=== PATIENT | female | born 1985 | race Caucasian/White ===

== ENCOUNTER 2016-08-26 01:33 | Inpatient (IN) | payer OTHER ==
[~2016-08-26] VITALS: Ht 162.6 cm; Wt 101.6 kg
[~2016-08-26 01:33] MED LIST: PREN-20 PO
[2016-08-26] MEDS ORDERED: PREN-12 PO (07:53)
[2016-08-26] MEDS ORDERED: Lactated Ringer's 1,000 ML IV PRN (08:19)
[2016-08-26] MEDS ORDERED: Lactated Ringer's 1,000 ML IV SCH (08:19)
[2016-08-26] MEDS ORDERED: Methylergonovine 0.2 mg/mL Inj IM PRN ×2 (08:20→16:25)
[2016-08-26] MEDS ORDERED: Carboprost 250 mCg/mL Inj IM PRN ×2 (08:20→16:25)
[2016-08-26] MEDS ORDERED: Oxytocin 10 Unit/mL Inj IM PRN ×2 (08:20→16:25)
[2016-08-26] MEDS ORDERED: Hemorrhage Kit, Post Partum XX ONE ×2 (08:20→16:25)
[2016-08-26] MEDS ORDERED: fentaNYL-PF 50 mCg/mL 2 mL Inj IVPUSH PRN ×2 (08:20→13:45)
[2016-08-26] MEDS ORDERED: Sodium Chloride LOK Flush 10 mL Syringe IVFLUSH PRN ×2 (08:20→16:25)
[2016-08-26] MEDS ORDERED: Oxytocin 30 Units/500 mL LR 30 UNITS in IV Premix 1 EACH IV PRN ×3 (08:20→16:25)
[2016-08-26 09:32] LABS: Mean Corpuscular Hemoglobin 30.1 pg (27.0-35.0); Mean Corpuscular Volume 90.9 fL (81-100)
[2016-08-26] MEDS ORDERED: Ondansetron 2 mg/mL 2 mL Inj ONE (13:44)
[2016-08-26] MEDS ORDERED: Phenylephrine/NS-PF 100 mCg/mL 5 mL Syringe IVPUSH ONE (13:44)
[2016-08-26] MEDS ORDERED: EPHEDrine/NS 5 mg/mL 5 mL Syringe ONE (13:44)
[2016-08-26] MEDS ORDERED: Oxytocin 10 Unit/mL Inj ONE (13:44)
[2016-08-26] MEDS ORDERED: Atropine 0.4 mg/mL Inj IV PRN (13:45)
[2016-08-26] MEDS ORDERED: EPHEDrine Sulfate 50 mg/mL Inj IVPUSH PRN ×2 (13:45)
[2016-08-26] MEDS ORDERED: fentaNYL-PF 50 mCg/mL 2 mL Inj ONE (13:46)
[2016-08-26] MEDS ORDERED: Morphine PF 1 mg/mL 10 mL Inj ONE ×2 (13:46→14:33)
[2016-08-26] MEDS ORDERED: Sodium Citrate-Citric Acid 15 mL Solution PO SCH (14:45)
[2016-08-26] MEDS ORDERED: CeFAZolin Inj 2 GM in IV Premix 1 EACH IV ONE (14:45)
--- NOTE | 2016-08-26 14:45 | PCM.HPANE ---
Patient Data Date of Service: August 26, 2016 (4214) Surgeon Admitting Provider:Serg Sharp MD Attending Provider:Serg Sharp MD Primary Care Physician:Zoila Springer MD Other Provider:Oscar Shin Anesthesia Reason for Visit Induction INDUCTION Ht/WT & BMI Height (Centimeters): 162 Weight (Kilograms): 101 Body Mass Index Allergies Coded Allergies: No Known Allergies (Unverified Allergy, Unknown, 03/25/14) Past Anesthesia History Anesthesia History: Denies:: Anesthesia Reactions Diabetes History Hx Diabetes?: No MRSA MRSA: No Medications Hypertension Medication: No Home Meds Incl Beta Jordan: No Reported Medications Vit W-Ca,Fe,FA(<1 mg) ( Formula)1 Each Tablet1 Each PO DAILY 08/26/16 Discontinued Reported Medications Pnv With Ca,No.71/Iron/Fa-Expunged Drug, Do N (-Expunged Drug, Do Not Renew!)1 Each Tablet1 Each PO DAILY 05/06/13 History History of ENT Problems?: No HEENT History: Denies:: Abnormal Airway Denture Type: None Teeth Condition: Within Normal Limits Hx of Heart Problems?: No Cardiovascular History: Denies:: Heart Murmur Hx of Respiratory Problem?: No Respiratory History: Denies:: Asthma Cough Hx Neurologic Problems?: No Neurological History: Denies:: Headaches Hx of GI Problems?: No Gastrointestinal History: Denies:: Liver Disease Hx of Problems?: No HX of Peritoneal Dialysis: No Female Hx: Positive for:: Currently (, repeat Csection. Delivered 05/06/13 here at [facility]) Denies:: Endometriosis Pelvic Inflammatory Problems with Breasts? Hx Musculoskeletal Problems?: No Musculoskeletal History: Denies:: Back Injury Hx of Psycho/Social Problems?: No Hx Surgeries?: Yes (Csection) Hx Any Other Health Problems?: No Other History: Positive for:: Hospitalization Denies:: Cancer Endocrine Disease Thyroid Disease History Blood Transfusions: Denies:: Blood Transfusions Hx Diabetes: No Hx Alcohol Use: NoHx Substance Use: No Smoking Status: Never Smoker Stop/Bang Risk Assessment Category Category 1A: Patient has history of documented sleep apnea, and HAS NOT received any narcotic, sedative or anesthesia administration during this stay. Category 1B: Patient has history of documented sleep apnea, and HAS received any narcotic , sedative or anesthesia administration during this stay Category 2: Patient has SUSPECTED Obstructive Sleep Apnea, and HAS received any narcotic , sedative or anesthesia administration during this stay. Category 3: Patient has SUSPECTED Obstructive Sleep Apnea and HAS NOT received narcotic, sedative or anesthesia administration during this stay. Category 4: Outpatient in Procedural Areas with known sleep apnea or who screen positive for High Risk via the STOP/BANG questionnaire. Exam Exam General Appearance: Alert, Oriented X3 HEENT/AIRWAY: MP 1 Lungs: Clear to Auscultation Heart: Exam Unremarkable Meds/Labs/Diagnostics Labs Test 08/26/16 08:45 White Blood Count 10.7th/mm3 (3.8-10.1) Red Blood Count 4.08mil/mm3 (3.90-5.20) Hemoglobin 12.3g/dL (12.0-15.6) Hematocrit 37.1% (35.0-46.0) Mean Corpuscular Volume 90.9fL (81-100) Mean Corpuscular Hemoglobin 30.1pg (27.0-35.0) Mean Corpuscular Hemoglobin Concent 33.2% (32.0-37.0) Red Cell Distribution Width 13.3% (12.3-15.4) Platelet Count 285bil/L (150-400) Plan Impression Patient chart reviewed, patient interviewed and anesthestic plan with risks, benefits, and alternatives discussed, and informed consent obtained. NPO per Anesth. Guidelines: Yes ASA Physical Status: ASA2 Mod Systemic Disease Anesthetic Plan: SAB Bene/Risks/Altern/Consents: Yes HP Complete Prior to Induction: Yes Myron Greco MD August 26, 2016 14:44
[2016-08-26] MEDS ORDERED: LANOlin HPA 7 Gm Ointment TOPICAL PRN (16:25)
[2016-08-26] MEDS ORDERED: diphenhydrAMINE 50 mg Capsule PO PRN (16:25)
[2016-08-26] MEDS ORDERED: Acetaminophen IV 1,000 MG in IV Premix 1 EACH IV PRN (16:25)
[2016-08-26] MEDS ORDERED: HYDROcodone-APAP 5-325 mg Tablet PO PRN (16:25)
--- NOTE | 2016-08-26 16:29 | PCM.ANEP1 ---
Post Anesthesia PACU Phase 1 Assessment Date of Service: August 26, 2016 Vital Signs 104/56, 65, 97%, 12, 36.5 Anesthetic Administered: SAB Level of Alertness: Awake, talking DC's with Equal Strength: No Pain: No Nausea or Vomiting: No CV Function and Hydration: Yes Airway Device: none Lungs: Clear to Auscultation Dermatome Level: T10 (Umbilicus) Summary uneventful sab PACU Phase 2 Assessment Complications: No Follow up Care: No Patient Instructions Provided: N/A Myron Greco MD August 26, 2016 16:29
[2016-08-26] MEDS ORDERED: Ondansetron 2 mg/mL 2 mL Inj IVPUSH PRN (17:05)
[2016-08-26] MEDS ORDERED: MetoCLOpramide 5 mg/mL 2 mL Inj IVPUSH PRN (17:45)
[2016-08-26] MEDS ORDERED: Dexamethasone 4 mg/mL Inj IVPUSH PRN (17:45)
[2016-08-26] MEDS: Lactated Ringer's 1,000 ML IV SCH (17:54)
[2016-08-26] MEDS ORDERED: Promethazine 50 mg/mL Inj IM PRN (20:40)
[2016-08-26] MEDS ORDERED: Promethazine 25 mg/mL Inj IM PRN (20:55)
[2016-08-26] MEDS ORDERED: Promethazine Inj 25 MG in 0.9% Sodium Chloride-Pha MIX 100 ML IV ONE (21:10)
[2016-08-27] MEDS: Lactated Ringer's 1,000 ML IV SCH (02:56)
--- NOTE | 2016-08-27 06:12 | HP ---
[address] [address] HISTORY AND PHYSICAL PATIENT: JOAN VELEZ : 1985 MR#: [id number] ADMIT: 08/26/2016 JOB ID: [id number] HISTORY OF PRESENT ILLNESS: This is a 31-year-old female. She is 2, para 1, at 41 weeks . She was admitted to [facility] for scheduled induction of labor at 41 weeks and history of previous section, desire for TOLAC. At admission she had occasional contractions. Her cervical examination was closed, long, high and posterior, and her heart tracing was category 1. This patient had routine care at [facility]. During her care it was noticed her blood type was O positive, her varicella immune, rubella immune, RPR negative, HBsAg negative, HIV negative, chlamydia and gonorrhea negative. She had an elevated 1 hour glucose testing at 144, at 3 hours was negative. During , the patient was talked to about the mode of delivery between a trial of labor after section or repeat section. The patient desires for a type trial of labor. Consent signed. ALLERGIES: She has no known drug allergies. PAST MEDICAL HISTORY: She declined other medical problems. PAST SURGICAL HISTORY: She denied significant surgical history. SOCIAL HISTORY: She does not smoke. She does not drink alcohol and no drug usage. PHYSICAL EXAMINATION: She is afebrile. Her pulse is in the normal range. Cardiac: RRR. No murmur. Pulmonary: Bilaterally clear. Abdomen: Soft. Gravid uterus, nontender, occasional contractions. No vaginal bleeding. Cervical examination as mentioned above. ASSESSMENT AND PLAN: This is a 31-year-old female, 2, para 1, at 41 weeks, previous section. Induction of labor, trial of labor after . 1. Talked with patient about the benefits and risks of TOLAC. Informed consent signed and induction of labor consent signed. Discussed with the patient that at this time her cervix was very unfavorable. The methods I would consider at this time, one is Pitocin and one is cervical ripening balloon but based on my examination I could not place the ripening balloon. I will start her on Pitocin first and then will re-evaluate in about 4-5 hours to see whether there is improvement of cervix to allow me to place the Guevara balloon. 2. Will continue to monitor. 3. The patient can get epidural for pain if she desires.
[2016-08-27] MEDS: oxyCODONE-Acetamin 5-325 mg Tablet PO PRN ×3 (06:27→16:39)
[2016-08-27 07:17] LABS: Mean Corpuscular Hemoglobin 30.1 pg (27.0-35.0); Mean Corpuscular Volume 91.8 fL (81-100)
--- NOTE | 2016-08-27 08:29 | OP ---
[address] [address] OPERATIVE REPORT PATIENT: JOAN VELEZ : 1985 MR#: [id number] ADMIT: 08/26/2016 JOB ID: [id number] DATE OF SURGERY: 08/26/2016 SURGEON: Nieves Hartmann MD ULTRA SOUND TECHNICIAN: Zoila Springer MD. For this procedure, ophthalmology assistant was very necessary for exposure and to help the procedure complete smoothly. PREOPERATIVE DIAGNOSIS(ES): 1. Failed induction of labor. 2. Previous section. POSTOPERATIVE DIAGNOSIS(ES): 1. Failed induction of labor. 2. Previous section. INDICATIONS FOR PROCEDURE: 1. Failed induction of labor. 2. Previous section. PREOPERATIVE EVALUATION: The patient was admitted to the [facility] for induction of labor after previous section, desiring TOLAC, at 41 weeks with a very unfavorable cervix. The decision was made to start on Pitocin and re-evaluate to see whether cervical ripening balloon is possible. The patient had Pitocin started. She had very regular, strong contractions with low-dose Pitocin, but after 5 hours, she presented for re-examination and her cervix was long, posterior, soft. The presenting part was very high, above +4. On examination, it is very difficult to plan on placing the cervical ripening balloon. Also, with very strong contractions at this time and not dilating cervix, I am concerned about the increased risk of rupture of uterus. I discussed with the patient at this time about the situation. One is fill of induction and consider section or monitor for a longer time to see whether it is possible to place a Guevara catheter and do more cervical ripening. After discussing the benefits and risks, the patient decided to, at this time, stop induction and have repeat section. The patient understood that there are risks and benefits with repeat section. She understood the risks of infection, bleeding, injury to organs around the uterus (including but not limited to the bladder, ureters, major vessels, nerves and the bowel). Informed consent was signed. PROCEDURE IN DETAIL: The patient was transferred to the operating room after anesthesia was noted to be adequate. She was placed in the dorsal supine position with leftward tilt. She was prepared in the normal sterile fashion. A Pfannenstiel incision was placed through her previous scar. This incision was carried through to the underlying fascia, both bluntly and with Bovie. A transverse incision was placed on the fascia and extended bilaterally by Cavanaugh scissors. The superior aspect of this incision was grasped by Kochers and tented up. The underlying rectus muscles were dissected off. Then, the inferior aspect of the incision was grasped by Kochers, tented up and the underlying rectus muscles were . Then, the underlying peritoneum was identified and then entered bluntly with direct visualization. The bladder blade was re-inserted to expose the lower segment of the uterus. The vesicouterine peritoneum was identified and entered sharply with Metzenbaum scissors. Bladder flap was created, both digitally and sharply. Bladder blade was re-inserted. A transverse incision was placed on the lower segment of the uterus and extended bilaterally by bandage scissors. All instruments were cleared from the field. The 's head was delivered atraumatically. Shoulder and chest delivered without difficulty. The infant had a spontaneous cry and had good tone. Delayed cord clamp was performed 1 minute after delivery. Regular cord blood collected. Then, the placenta delivered spontaneously completely and examined, seen to have three-vessel cord. Because of adhesions of the omentum to the uterus, the uterus could not be exteriorized. Then, the incision was closed by 0 Vicryl continuously in a locked fashion. The incision was examined and noticed to have good hemostasis. At this time, bilateral adnexa were examined. The left ovary and the left tube appeared to be normal. Right tube and ovary was not able to be exposed because of the adhesion, but it could be felt by hand with normal-sized ovary and tube. At this time, all debris and clots were cleared from the field again and the pelvis was irrigated by warm normal saline. Then, the fascia was reapproximated with 0 Vicryl continuously. The subcutaneous connective tissue was reapproximated with 2-0 plain sutures subcutaneously. The skin was closed by 4-0 Monocryl on a Aleks needle. The patient tolerated the procedure well. She was transferred to the recovery room in stable condition. Ancef 2 g was given before the procedure started. ESTIMATED BLOOD LOSS: EBL during the procedure was 500 cc. FLUIDS: IV fluids given was 1.2 L. URINE OUTPUT: 500 cc.
--- NOTE | 2016-08-27 11:39 | PROG NOTE ---
[address] [address] PROGRESS NOTE PATIENT: JOAN VELEZ : 1985 MR#: [id number] ADMIT: 08/26/2016 JOB ID: [id number] DATE: 08/27/2016 SUBJECTIVE: A 31-year-old female, status post repeat section after failed induction of labor. This is postop day one. The patient is doing well. Her pain is well controlled by pain medication. She is voiding well and she is ambulating well and she is able to keep her diet. PHYSICAL EXAMINATION: Her vitals stable. She is afebrile. Blood pressure in normal range. Pulse in normal range. Cardiac: RRR, no murmur. Pulmonary: Bilaterally clear. Abdomen: Soft, nontender. Uterus well contracted, nontender. Extremities: Nontender. Lochia moderate to minimal. ASSESSMENT AND PLAN: A 31-year-old female 2, para 2, status post repeat section postoperative day one, doing well. We will continue with her pain management and continue routine care.
[2016-08-28] MEDS: oxyCODONE-Acetamin 5-325 mg Tablet PO PRN ×3 (04:15→13:47)
--- NOTE | 2016-08-28 08:56 | PCM.PNOBPP ---
Subjective Date of Service August 28, 2016 Post : Repeat Ceserean Delivery Visit History A 31-year-old female, status post repeat section after failed induction of labor. This is postop day two. The patient is doing well. Her pain is well controlled by pain medication. She is voiding well and she is ambulating well and she is able to keep her diet. Subjective The patient has no complaints today. Lochia: Normal Pain Management: PO pain meds Gastrointestinal: Good Appetite, No N/V Postop Activity: Ambulating Independently Group B Strep Results: Negative Rubella: Immune Blood Type: O RH Type: Positive Labs Laboratory Tests 72 Hours Test 08/26/16 08:45 08/27/16 06:55 White Blood Count 10.7th/mm3 (3.8-10.1) 17.2th/mm3 (3.8-10.1) Red Blood Count 4.08mil/mm3 (3.90-5.20) 3.76mil/mm3 (3.90-5.20) Hemoglobin 12.3g/dL (12.0-15.6) 11.3g/dL (12.0-15.6) Hematocrit 37.1% (35.0-46.0) 34.5% (35.0-46.0) Mean Corpuscular Volume 90.9fL (81-100) 91.8fL (81-100) Mean Corpuscular Hemoglobin 30.1pg (27.0-35.0) 30.1pg (27.0-35.0) Mean Corpuscular Hemoglobin Concent 33.2% (32.0-37.0) 32.8% (32.0-37.0) Red Cell Distribution Width 13.3% (12.3-15.4) 13.4% (12.3-15.4) Platelet Count 285bil/L (150-400) 278bil/L (150-400) Exam Vital Signs Vital Signs: VS reviewed, stable Exam Abdomen: Fundus firm Extremities: No cords, No edema General: Alert, Oriented X3, Cooperative, No Acute Distress Surgical Wound : Incision General Appearence: Intact, Well Approximated, No Discharge OB Post Assessment/Plan Assessment This operative day #2 status post repeat low transverse delivery doing well. Problems: (1) Status post repeat low transverse section Plan: Plan to discharge patient home today Status: Acute ICD Code: Z98.891 Pain Evaluation: Adequate Pain Control Post plan: Anticipate discharge home today Elisa Christie MD August 28, 2016 08:56
--- NOTE | 2016-08-28 09:00 | PCM.DIOB ---
Obstetrical Disch Instruction Date of Service: August 28, 2016 Dates of Hospitalization Date of Hospital Admission August 26, 2016 at 06:54 Providers Admitting Physician: Serg Sharp MD Primary Care Physician: Zoila Springer MD Attending Physician: Serg Sharp MD Discharge Diagnosis Problems: (1) Status post repeat low transverse section Plan: Patient is doing well and plan to discharge home today. Status: Acute ICD Code: Z98.891 Diet Discharge Diet: No restrictions Activity Discharge Activity-General: Pelvic Rest for 6 weeks, Try not to overdue, Be up and about, Balance rest and activity, No lifting >10 pounds for 4-6 weeks Dressing and Incisional Care Hygiene: May shower, Wash incision with soap & water, DO NOT soak incision under water, NO bathtub, hot tub or whirlpool, Perineal care, Sitz bath, Dermoplast spray, Witch Ele pads Follow Up Plan Follow-up appointment: Weeks (2 weeks) Call your provider for: Fever or Chills, Shortness of breath, Heavy vaginal bleeding, Heavy bleeding, Vaginal discomfort, Red painful breasts, Other ( drainage from your incision) Elisa Christie MD August 28, 2016 09:00
[2016-08-28] MEDS ORDERED: DOCU-41 PO (09:03)
[2016-08-28] MEDS ORDERED: OXYC1TAB24 PO (09:03)
[2016-08-28] MEDS ORDERED: IBUP-1827 PO (09:03)
--- NOTE | 2016-08-28 09:08 | PCM.DC.OB ---
Obstetrical Discharge Summary Date of Service August 28, 2016 Date of hospital admission August 26, 2016 at 06:54 Date of Discharge: August 28, 2016 Providers Admitting Physician: Nieves Hartmann MD Problems: (1) Status post repeat low transverse section Plan: Patient did well post operatively and was discharged home. Status: Acute ICD Code: Z98.891 Invasive procedures 1. Repeat low-transverse delivery after trial labor. Date of Procedure: August 26, 2016 Brief History and Physical: A 31-year-old female, status post repeat section after failed induction of labor. This is postop day two. The patient is doing well. Her pain is well controlled by pain medication. She is voiding well and she is ambulating well and she is able to keep her diet. Hospital Course: A 31-year-old female, status post repeat section after failed induction of labor. This is postop day 2. The patient is doing well. Her pain is well controlled by pain medication. She is voiding well and she is ambulating well and she is able to keep her diet. Docusate Sodium (Colace) 100 Mg Capsule 100 MG PO BID PRN PRN For Constipation Prescribed by: ELISA RACHEL MD Ibuprofen (Ibuprofen) 600 Mg Tablet 600 MG PO Q6H PRN PRN For Pain Prescribed by: ELISA RACHEL MD Vit W-Ca,Fe,FA(<1 mg) ( Formula) 1 Each Tablet 1 EACH PO DAILY (Reported) Last Taken: Unknown Dose on 08/25/16 oxyCODONE-Acetaminophen 5-325 mg ( oxyCODONE-Acetaminophen 5-325 mg) 1 Each Tablet 1-2 TAB PO Q4H PRN PRN For Pain Prescribed by: ELISA RACHEL MD Discontinued Medications Pnv With Ca,No.71/Iron/Fa-Expunged Drug, Do N (-Expunged Drug, Do Not Renew!) 1 Each Tablet 1 EACH PO DAILY (Reported) Follow-up plan Follow-up in the office in 2 weeks for an incision check Discharge Diet: No restrictions Discharge Activity-General: Pelvic Rest for 6 weeks, Try not to overdue, Be up and about, Other (no lifting greater than 10 pounds for 4-6 weeks) Elisa Rachel MD August 28, 2016 09:08
[2016-08-28 09:54] VITALS: BP 110/55; PULSE 76; RESP 16
== END 2016-08-28 14:29 | disposition home or self-care (01) | DRG 766 ==
LOC: FBC 06:54
PROVIDERS: ADMIT Legal Medicine; ATTEND Obstetrics & Gynecology
PROC: 3E033VJ Introduction of Other Hormone into Peripheral Vein, Percutaneous Approach (ICD-10-PCS; 2016-08-26)
PROC: 10D00Z1 Extraction of Products of Conception, Low, Open Approach (ICD-10-PCS; principal; 2016-08-26 15:17)
DX: O66.41 Failed attempted vaginal birth after previous cesarean delivery (principal); O48.0 Post-term pregnancy; Z3A.41 41 weeks gestation of pregnancy; Z37.0 Single live birth